=== PATIENT | male | born 1980 | race Caucasian/White ===

== ENCOUNTER 2017-06-19 19:34 | Emergency (ER) | payer MEDICAID ==
[~2017-06-19] VITALS: Ht 170.2 cm; Wt 77.1 kg
[~2017-06-19 19:34] MED LIST: CRUTCH1 EACH; NORCO 5-325 TA1 EACH PO; ZOFRAN ODT4 MG SL
[2017-06-19] MEDS ORDERED: TESSALON PERLE100 MG PO (23:06)
== END 2017-06-19 23:21 | disposition home or self-care (01) ==
LOC: ED 19:34
DX: J20.9 Acute bronchitis, unspecified (principal); Z88.8 Allergy status to other drugs, medicaments and biological substances
CPT/HCPCS: 99283

== ENCOUNTER 2018-08-02 22:42 | Emergency (ER) | payer OTHER ==
[~2018-08-02] VITALS: Ht 170.2 cm; Wt 81.7 kg
[~2018-08-02 22:42] MED LIST changes: +FLONASE ALLERG9.9 ML NAS; +TESSALON PERLE100 MG PO
== END 2018-08-02 23:44 | disposition home or self-care (01) ==
LOC: ED 22:42
PROC: 0HQ1XZZ Repair Face Skin, External Approach (ICD-10-PCS; principal; 2018-08-02)
DX: S01.112A Laceration without foreign body of left eyelid and periocular area, initial encounter (principal); Z88.8 Allergy status to other drugs, medicaments and biological substances; W01.198A Fall on same level from slipping, tripping and stumbling with subsequent striking against other object, initial encounter
CPT/HCPCS: 12013; 90471; 90715; 99282-25

== ENCOUNTER 2018-12-08 10:37 | Emergency (ER) | payer OTHER ==
[~2018-12-08] VITALS: Ht 170.2 cm; Wt 81.7 kg
== END 2018-12-08 10:52 | disposition home or self-care (01) ==
LOC: ED 10:37
DX: J00 Acute nasopharyngitis [common cold] (principal)

== ENCOUNTER 2018-12-09 20:07 | Emergency (ER) | payer OTHER ==
[~2018-12-09] VITALS: Ht 170.2 cm; Wt 81.6 kg
--- OUTSIDE RECORDS SUMMARY | 2018-12-09 20:10 | XMS ---
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 Eddie has no Care Guidelines for this patient. Joi VISIT COUNT (12 MO.) [address] [facility] TOTAL 4 NOTE: Visits indicate total known visits. ED/C VISIT TRACKING (12 MO.) 12/09/2018 20:08 [facility] [place] TYPE: Emergency COMPLAINT: - FLU SYMPTOMS 12/08/2018 10:38 [facility] [place] TYPE: Emergency COMPLAINT: - COLD SYMPTOMS 08/02/2018 22:43 [facility] [place] TYPE: Emergency COMPLAINT: - FACE LAC DIAGNOSES: - Laceration w/o foreign body of ot part of head, init encntr - Laceration w/o fb of left eyelid and periocular area, init - Allergy status to oth drug/meds/biol subst status - Laceration w/o fb of left eyelid and periocular area, init - Fall same lev from slip/trip w strike agnst ot object, init 12/17/2017 19:33 [facility] [place] TYPE: Emergency COMPLAINT: - FLU SYMPTOMS DIAGNOSES: - Other rodent exterminator (current) drug therapy - Acute upper respiratory infection, unspecified - Cough - Allergy status to oth drug/meds/biol subst status INPATIENT VISIT TRACKING (12 MO.) No inpatient visits to display in this time frame [id number]
== END 2018-12-09 21:21 | disposition home or self-care (01) ==
LOC: ED 20:07
DX: J06.9 Acute upper respiratory infection, unspecified (principal); Z88.5 Allergy status to narcotic agent
CPT/HCPCS: 99283

== ENCOUNTER 2020-04-08 17:37 | Emergency (ER) | payer OTHER ==
[~2020-04-08] VITALS: Ht 170.2 cm; Wt 80.6 kg
--- OUTSIDE RECORDS SUMMARY | 2020-04-08 17:40 | XMS ---
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 Care History Medical/Surgical 12/11/2018 [facility] - Patient is currently established with [facility]. If patient is seen in the ED during business hours. Please contact [facility] at [facility]. Care Recommendation: This patient has had 5 or more Emergency Department visits in the last 12 months.\T\nbsp; Patient requires education on the scope and purpose of the ED as an acute care provider not a Primary Care Provider and should not be utilized for chronic conditions.\T\nbsp; These are guidelines and the provider should exercise clinical judgment when providing care. E.D. VISIT COUNT (12 MO.) 1 [facility] TOTAL 1 NOTE: Visits indicate total known visits. ED/UCC VISIT TRACKING (12 MO.) 04/08/2020 17:[address] [facility] [place] TYPE: Emergency COMPLAINT: - ABD PAIN INPATIENT VISIT TRACKING (12 MO.) No inpatient visits to display in this time frame [email or web address]
[2020-04-08] MEDS ORDERED: FLUOXETINE HCL20 M1 PO (17:51)
[2020-04-08] MEDS ORDERED: OMEPRAZOLE20 MG PO (21:20)
== END 2020-04-08 21:37 | disposition home or self-care (01) ==
LOC: ED 17:37
DX: K30 Functional dyspepsia (principal); Z87.891 Personal history of nicotine dependence; Z88.8 Allergy status to other drugs, medicaments and biological substances; Z79.899 Other long term (current) drug therapy
CPT/HCPCS: 74176; 76705; 80053; 81001; 83690; 85025; 96374; 96375; 96376; 99284-25; C9113; J1170; J2405; J7030

== ENCOUNTER 2020-07-13 08:30 | Emergency (ER) | payer OTHER ==
[~2020-07-13] VITALS: Ht 170.2 cm; Wt 80.3 kg
[~2020-07-13 08:30] MED LIST changes: +FLUOXETINE HCL20 M1 PO; +OMEPRAZOLE20 MG PO
--- NOTE | 2020-07-13 14:06 | NUR ---
PT CALLED THIS RN REQUESTING HIS COVID RESULTS.
== END 2020-07-13 09:33 | disposition home or self-care (01) ==
LOC: ED 08:30
DX: J06.9 Acute upper respiratory infection, unspecified (principal); Z20.822 Contact with and (suspected) exposure to COVID-19; Z88.8 Allergy status to other drugs, medicaments and biological substances; Z79.899 Other long term (current) drug therapy
CPT/HCPCS: 99283; C9803; U0003

== ENCOUNTER 2021-04-20 16:39 | Emergency (ER) | payer OTHER ==
[~2021-04-20] VITALS: Ht 170.2 cm; Wt 79.4 kg
--- OUTSIDE RECORDS SUMMARY | 2021-04-20 16:42 | XMS ---
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 E.Sparkle VISIT COUNT (12 MO.) 2 [facility] TOTAL 2 NOTE: Visits indicate total known visits. ED/C VISIT TRACKING (12 MO.) 04/20/2021 16:[address] [facility] [place] TYPE: Emergency COMPLAINT: - R FOOT HEEL PAIN 07/13/2020 08:32 [facility] [place] TYPE: Emergency COMPLAINT: - COLD SYMPTOMS DIAGNOSES: - Cough - Allergy status to other drugs, medicaments and biological substances - Other ferry terminal agent (current) drug therapy - Acute upper respiratory infection, unspecified INPATIENT VISIT TRACKING (12 MO.) No inpatient visits to display in this time frame [id number]
[2021-04-20] MEDS ORDERED: SERTRALINE HCL50 MG PO (16:54)
== END 2021-04-20 18:12 | disposition home or self-care (01) ==
LOC: ED 16:39
DX: S80.11XA Contusion of right lower leg, initial encounter (principal); M76.61 Achilles tendinitis, right leg; W01.0XXA Fall on same level from slipping, tripping and stumbling without subsequent striking against object, initial encounter
CPT/HCPCS: 73630; 99283-25

== ENCOUNTER 2022-03-27 16:13 | Emergency (ER) | payer OTHER ==
[~2022-03-27] VITALS: Ht 170.2 cm; Wt 82.1 kg
[~2022-03-27 16:13] MED LIST changes: +SERTRALINE HCL50 MG PO
== END 2022-03-27 16:50 | disposition home or self-care (01) ==
LOC: ED 16:13
DX: B34.9 Viral infection, unspecified (principal); Z88.8 Allergy status to other drugs, medicaments and biological substances
CPT/HCPCS: 99283